=== PATIENT | male | born 1965 | race Caucasian/White ===

== ENCOUNTER 2020-03-10 11:21 | Outpatient (CLI) | payer OTHER, SELFPAY ==
--- NOTE | 2020-03-10 11:51 | XR_ITS ---
WS: [id number] LUMBAR SPINE: 3 VIEWS TECHNIQUE: AP, lateral and L5-S1 spot. HISTORY: NECK AND BACK PAIN COMPARISON: None available. Mild straightening of the normal lumbar lordosis. No fractures. Endplate osteophytes at all levels. Mild bilateral facet joint arthritis at L4-5 and L5-S1. SI joints are symmetric bilaterally. No soft tissue abnormalities. XR/XR lumbar spine 2-3V* [id number] IMPRESSION: Mild spondylosis. No fractures.
--- NOTE | 2020-03-10 11:51 | XR_ITS ---
WS: [id number] THORACIC SPINE TECHNIQUE: AP and lateral views are performed. HISTORY: NECK AND BACK PAIN COMPARISON: None available. Normal thoracic alignment. Endplate osteophytes at all levels. Mild narrowing of the disc spaces. No fractures. Pedicles are all identified. RIGHT lateral bridging osteophytes beginning at T7-T11. XR/XR thoracic spine 3V* [id number] IMPRESSION: Mild thoracic spondylosis.
--- NOTE | 2020-03-10 11:51 | XR_ITS ---
WS: [id number] CERVICAL SPINE 3 VIEWS HISTORY: NECK AND BACK PAIN COMPARISON: None available. Straightening of the normal cervical lordosis. C4 retrolisthesis by 2.2 mm. Moderate size osteophytes extend posteriorly toward the central cervical cord at the C3, C4, C5 and C6 levels. Moderate-sized anterior bridging osteophytes at C5 and C6. Lateral masses are aligned. The odontoid incompletely visualized. Soft tissues are normal. XR/XR cervical spine 3V* [id number] IMPRESSION: 1. C4 retrolisthesis by 2.2 mm. 2. Multilevel moderate spondylosis, most significant at C5-6 and C6-7.
== END 2020-03-10 11:22 | disposition home or self-care (01) ==
LOC: RADWPI 11:25
PROVIDERS: Family Provider Nurse Practitioner Family; PCP Nurse Practitioner Family; Visit Provider Nurse Practitioner Family
DX: M54.6 Pain in thoracic spine (principal); M54.2 Cervicalgia; M47.814 Spondylosis without myelopathy or radiculopathy, thoracic region; M47.816 Spondylosis without myelopathy or radiculopathy, lumbar region; M47.812 Spondylosis without myelopathy or radiculopathy, cervical region
CPT/HCPCS: 72040; 72072; 72100

== ENCOUNTER 2020-06-26 09:50 | Outpatient (CLI) | payer OTHER, SELFPAY ==
--- NOTE | 2020-06-26 09:57 | XR_ITS ---
WS: [id number] CERVICAL SPINE TECHNIQUE: 3 views of the cervical spine CLINICAL INFORMATION: CERVICALGIA, ARTHRODESIS STATUS COMPARISON: None. FINDINGS: Straightening of the normal cervical lordosis. Anterior cervical fusion with interbody fusion C3-C5. Disc space narrowing worse at C5-C6 and C6-C7. Anterior hypertrophic changes C5-C7. XR/XR cervical spine 3V* [id number] IMPRESSION: 1. Straightening of the normal cervical lordosis with satisfactory anterior ce rvical fusion C3-C5 interbody fusion grafts C3-4 and C4-5. 2. Disc space narrowing worse at C5-C6 and C6-C7.
== END 2020-06-26 09:51 | disposition home or self-care (01) ==
LOC: RADWPI 09:54
PROVIDERS: PCP Nurse Practitioner Family; Visit Provider Surgery
DX: M54.2 Cervicalgia (principal); Z98.1 Arthrodesis status
CPT/HCPCS: 72040

== ENCOUNTER 2020-11-03 09:53 | Outpatient (CLI) | payer OTHER, SELFPAY ==
--- NOTE | 2020-11-03 10:07 | XR_ITS ---
WS: [id number] CERVICAL SPINE 2 VIEWS HISTORY: ARTHRODESIS STATUS, CERVICALGIA COMPARISON: 06/26/2020 Straightening of the normal cervical lordosis. Anterior cervical fusion extends from C3 to C5. Interb kasia spacer at C3-4 and C4-5. Disc spaces maintained. No lucency around the hardware. Moderate disc sp caroline narrowing at C5-6 and C6-7 is similar to the prior study. Bilateral facet joint arthritis from C3 to C5. Soft tissues are normal. XR/XR cervical spine 3V* [id number] IMPRESSION: 1. Unchanged anterior cervical fusion with interbody spacers from C3 to C5. No complications. 2. Moderate degenerative disc space narrowing at C5-6 and C6-7 is unchanged.
== END 2020-11-03 09:54 | disposition home or self-care (01) ==
LOC: RADWPI 10:01
PROVIDERS: PCP Nurse Practitioner Family; Visit Provider Surgery
DX: M54.2 Cervicalgia (principal); Z98.1 Arthrodesis status
CPT/HCPCS: 72040

== ENCOUNTER 2025-05-05 21:26 | Emergency (ER) | payer OTHER, SELFPAY ==
--- OUTSIDE RECORDS SUMMARY | 2025-02-18 08:30 | XMS_ITS ---
Author Organization [facility] Address [address] [place] [address] Care Team Providers Care Director Of Market Research Name Role Phone Jasmin Murcia Primary Care Provider [phone] JASMIN MURCIA Unavailable Unavailable Paula Sarah Unavailable [phone] REASON FOR VISIT Screening Recall Medications Medication SIG (Take, Route, Frequency, Duration) Notes Start Date End Date Status oxyCODONE-Acetaminophe n 10-325 MG Tablet 1 tablet Orally every 6 hrs; Duration: 30 days As needed Do not exceed 4 per day Fill on 03-16-25 02/11/2025 04/15/2025 Active busPIRone HCl 10 MG Tablet TAKE 1/2 TO 1 (ONE-HALF TO ONE) TABLET BY MOUTH TWICE DAILY NEEDED FOR ANXIETY; Duration: 30 Active Famotidine 40 MG Tablet 1 tablet Orally Once a day; Duration: 30 days 01/15/2025 Active Metoprolol Succinate ER 50 MG Tablet Extended Release 24 Hour Take 1 tablet by mouth once daily; Duration: 30 Active Olmesartan Medoxomil 40 MG Tablet Take 1 tablet by mouth once daily; Duration: 30 Active traZODone HCl 100 MG Tablet 1 tab Orally Once a day at bedtime prn sleep; Duration: 30 days 12/24/2024 Active HYDROcodone-Acetaminop hen 7.5-325 MG Tablet 1 tablet as needed Orally every 6 hrs; Duration: 14 days 09/22/2020 Not-Taking Gabapentin 300 MG Capsule as directed Orally see instructions; Duration: 30 day(s) 300mg morning, 300mg mid afternoon, 600mg bedtime. Not-Taking Xanax 1 MG Tablet 1/2 to 1 tab Orally Twice a day prn anxiety; Duration: 30 days 07/25/2023 Not-Taking Tadalafil 20 MG Tablet TAKE 1 TABLET BY MOUTH ONCE DAILY NEEDED; Duration: 30 Not-Taking Ibuprofen *Pick strength-form from [facility] for [facility]* Active hydrOXYzine HCl 50 MG Tablet TAKE 1 TO 2 TABLETS BY MOUTH ONCE DAILY 30 MINUTES PRIOR TO BEDTIME NEEDED FOR SLEEP; Duration: 30 Active tiZANidine HCl 4 MG Tablet 1 tablet Orally twice a day prn muscle spasms; Duration: 30 days Fill 30 days from previous Rx 12/17/2024 04/23/2025 Active Gabapentin 600 MG Tablet TAKE 1 TABLET BY MOUTH FIVE TIMES DAILY DIRECTED Orally 5 times a day; Duration: 30 days Active Gabapentin *Pick strength-form from [facility]* Active Escitalopram Oxalate 20 MG Tablet 1 tablet Orally Once a day; Duration: 90 days Active oxyCODONE-Acetaminophe n 10-325 MG Tablet 1 tablet Orally every 6 hrs; Duration: 30 days As needed Do not exceed 4 per day Fill on 02-14-25 02/14/2025 03/16/2025 Active diphenhydrAMINE HCl 25 MG Capsule 1 capsule at bedtime as needed Orally Once a day Active amLODIPine Besylate 5 MG Tablet TAKE 1 TABLET BY MOUTH ONCE DAILY WITH SUPPER; Duration: 30 Active Encounters Encounter Location Date Provider Diagnosis [facility] [address] [place] [address] 02/18/2025 Paula Sarah Plan Of Treatment Next Appt Details Provider Name:Daisha young, 06/03/2025 10:20:00 AM, [address] [place], [address], Provider Name:Fredrick Junior , 06/10/2025 09:00:00 AM, [address] [place], [address], Progress Notes * Isrrael SCOTT WDOB:[birth year] (59 yo M)Acc No.[id number]:02/18/2025 Patient: Maricarmen darcyklarissaFabiánadam Perez Provider: Ingrid Sarah APRN :1965 A ge:59 Y S ex:Male Date:02/18/2025 Address:[address] [place], [place] [id number] Pcp:Jasmin Murcia Subjective: * Chief Complaints: * S creening Recall * Medications: T akingamLODIPine Besylate 5 MG Tablet TAKE 1 TABLET BY MOUTH ONCE DAILY WITH SUPPER busPIRone HCl 10 MG Tablet TAKE 1/2 TO 1 (ONE-HALF TO ONE) TABLET BY MOUTH TWICE DAILY NEEDED FOR ANXIETY diphenhydrAMINE HCl 25 MG Capsule 1 capsule at bedtime as needed Orally Once a day Escitalopram Oxalate 20 MG Tablet 1 tablet Orally Once a day Famotidine 40 MG Tablet 1 tablet Orally Once a day Gabapentin , Notes to Pharmacist: *Pick strength-form from [facility] for [facility]*Gabapentin 600 MG Tablet TAKE 1 TABLET BY MOUTH FIVE TIMES DAILY DIRECTED Orally 5 times a day hydrOXYzine HCl 50 MG Tablet TAKE 1 TO 2 TABLETS BY MOUTH ONCE DAILY 30 MINUTES PRIOR TO BEDTIME NEEDED FOR SLEEP Ibuprofen , Notes to Pharmacist: *Pick strength-form from [facility]*Metoprolol Succinate ER 50 MG Tablet Extended Release 24 Hour Take 1 tablet by mouth once daily Olmesartan Medoxomil 40 MG Tablet Take 1 tablet by mouth once daily oxyCODONE-Acetaminophen 10-325 MG Tablet 1 tablet Orally every 6 hrs As needed Do not exceed 4 per day, stop date 03/16/2025, Notes to Pharmacist: Fill on [id number]-Acetaminophen 10-325 MG Tablet 1 tablet Orally every 6 hrs As needed Do not exceed 4 per day, stop date 04/15/2025, Notes to Pharmacist: Fill on [id number] HCl 4 MG Tablet 1 tablet Orally twice a day prn muscle spasms , stop date 04/23/2025, Notes to Pharmacist: Fill 30 days from previous RxtraZODone HCl 100 MG Tablet 1 tab Orally Once a day at bedtime prn sleep Taking amLODIPine Besylate 5 MG Tablet TAKE 1 TABLET BY MOUTH ONCE DAILY WITH SUPPER Taking busPIRone HCl 10 MG Tablet TAKE 1/2 TO 1 (ONE-HALF TO ONE) TABLET BY MOUTH TWICE DAILY NEEDED FOR ANXIETY Taking diphenhydrAMINE HCl 25 MG Capsule 1 capsule at bedtime as needed Orally Once a day Taking Escitalopram Oxalate 20 MG Tablet 1 tablet Orally Once a day Taking Famotidine 40 MG Tablet 1 tablet Orally Once a day Taking Gabapentin , Notes to Pharmacist: *Pick strength-form from [facility] for [facility]*Taking Gabapentin 600 MG Tablet TAKE 1 TABLET BY MOUTH FIVE TIMES DAILY DIRECTED Orally 5 times a day Taking hydrOXYzine HCl 50 MG Tablet TAKE 1 TO 2 TABLETS BY MOUTH ONCE DAILY 30 MINUTES PRIOR TO BEDTIME NEEDED FOR SLEEP Taking Ibuprofen , Notes to Pharmacist: *Pick strength-form from [facility]*Taking Metoprolol Succinate ER 50 MG Tablet Extended Release 24 Hour Take 1 tablet by mouth once daily Taking Olmesartan Medoxomil 40 MG Tablet Take 1 tablet by mouth once daily Taking oxyCODONE-Acetaminophen 10-325 MG Tablet 1 tablet Orally every 6 hrs As needed Do not exceed 4 per day, stop date 03/16/2025, Notes to Pharmacist: Fill on [id number] oxyCODONE-Acetaminophen 10-325 MG Tablet 1 tablet Orally every 6 hrs As needed Do not exceed 4 per day, stop date 04/15/2025, Notes to Pharmacist: Fill on [id number] tiZANidine HCl 4 MG Tablet 1 tablet Orally twice a day prn muscle spasms , stop date 04/23/2025, Notes to Pharmacist: Fill 30 days from previous RxTaking traZODone HCl 100 MG Tablet 1 tab Orally Once a day at bedtime prn sleep Not-TakingGabapentin 300 MG Capsule as directed Orally see instructions , Notes to Pharmacist: 300mg morning, 300mg mid afternoon, 600mg bedtime.HYDROcodone-Acetaminophen 7.5-325 MG Tablet 1 tablet as needed Orally every 6 hrs Tadalafil 20 MG Tablet TAKE 1 TABLET BY MOUTH ONCE DAILY NEEDED Xanax 1 MG Tablet 1/2 to 1 tab Orally Twice a day prn anxiety Not-Taking Gabapentin 300 MG Capsule as directed Orally see instructions , Notes to Pharmacist: 300mg morning, 300mg mid afternoon, 600mg bedtime.Not-Taking HYDROcodone-Acetaminophen 7.5-325 MG Tablet 1 tablet as needed Orally every 6 hrs Not-Taking Tadalafil 20 MG Tablet TAKE 1 TABLET BY MOUTH ONCE DAILY NEEDED Not-Taking Xanax 1 MG Tablet 1/2 to 1 tab Orally Twice a day prn anxiety Billing Information: * Procedure Codes: * Electronic signature of Jerod Allison APRN on 05/05/2025 at 09:34 PM CDT Sign off status: Pending * Provider: Ingrid Sarah APRN Date: 0 02/18/2025 Generated for Maddi cotton/Jaya/Lela on: 1 09:34 PM CDT
--- OUTSIDE RECORDS SUMMARY | 2025-05-05 21:35 | XMS_ITS | Patient Health Record ---
Author Organization [facility] Address [address] [place] [address] Care Team Providers Care Shroudman Name Role Phone Gayle, Bushra Primary Care Provider GAYLEBUSHRA Unavailable Unavailable Fredrick Junior Unavailable [phone] Carmelo Judge Unavailable [phone] Migration, Provider Unavailable Unavailable Lisa Garduno Unavailable [phone] Gonzales Smith Unavailable [phone] Brandy Godinez Unavailable [phone] Daisha Padron Unavailable [phone] Paula Sarah Unavailable [phone] Allergies Allergen (clinical drug ingredient) Drug/Non Drug Allergy documented on EMR Reaction Allergy Type Onset Date Status No Known Drug Allergy Unknown Drug Allergy Active Results Component Value Reference Range Flag Notes Schedule Confirmation Reviewed date:08/14/2024 04:23:46 PM Interpretation: Performing Lab: Notes/Report: MRI Cervical Spine w/o Cont Cervical Spine AP/Lat 2-3 Vi [id number] (Not yet reviewed by provider) Interpretation: Performing Lab: Notes/Report: See Below For Report Cervical Spine AP/Lat 2-3 Views Read See Below For Report CBC w\ Auto Diff [id number] (Not yet reviewed by provider) Interpretation: Performing Lab: Notes/Report: WBC 7.8 4.5-11.0 X10'3 RBC 4.30 4.50-5.90 X10'6 LOW Hgb 12.8 13.5-17.5 G/DL LOW Hct 39.1 41.0-53.0 % LOW MCV 90.9 80.0-100.0 FL MCH 29.8 27.0-31.0 PG MCHC 32.7 31.0-37.0 G/DL Platelet 336 150-400 X10'3 RDW-SD 43.4 35.0-49.0 FL RDW-CV 13.1 12.2-15.6 % MPV 8.4 9.2-12.0 FL LOW Neutro Auto% 47.0 40.0-70.0 % Lymph Auto% 41.5 22.0-44.0 % Rock Auto% 7.9 3.0-7.0 % HI Eos Auto% 2.4 2.0-4.0 % Baso Auto% 0.9 0.0-1.0 % Imm Gran% .3 .0-.4 % Neutro Abs 3.69 .80-7.70 Absolute Neutrophil Count 3690 NA Lymph Abs 3.26 .10-4.10 Rock Abs .62 .20-1.00 Eos Abs .19 .00-.40 Baso Abs .07 .00-.20 Imm Gran Abs .02 .00-.10 NRBC# .00 .00-.20 NRBC% .00 .00-.20 /100 intact WBC's CBC w\ Auto Diff [id number] Reviewed date:03/26/2025 12:22:16 PM Interpretation:Abnormal Performing Lab: Notes/Report: Diagnosis Description: Essential (primary) hypertension WBC 7.8 4.5-11.0 X10'3 RBC 4.36 4.50-5.90 X10'6 LOW Hgb 14.4 13.5-17.5 G/DL Hct 40.7 41.0-53.0 % LOW MCV 93.3 80.0-100.0 FL MCH 33.0 27.0-31.0 PG HI MCHC 35.4 31.0-37.0 G/DL Platelet 325 150-400 X10'3 RDW-SD 42.3 35.0-49.0 FL RDW-CV 13.2 12.2-15.6 % MPV 9.1 9.2-12.0 FL LOW Neutro Auto% 53.5 40.0-70.0 % Lymph Auto% 32.6 22.0-44.0 % Rock Auto% 11.9 3.0-7.0 % HI Eos Auto% 1.0 2.0-4.0 % LOW Baso Auto% 0.6 0.0-1.0 % Imm Gran% .4 .0-.4 % Neutro Abs 4.15 .80-7.70 Absolute Neutrophil Count 4150 NA Lymph Abs 2.53 .10-4.10 Rock Abs .92 .20-1.00 Eos Abs .08 .00-.40 Baso Abs .05 .00-.20 Imm Gran Abs .03 .00-.10 NRBC# .00 .00-.20 NRBC% .00 .00-.20 /100 intact WBC's Comprehensive Metabolic Pane l (CMP) [id number] Reviewed date:03/26/2025 12:22:16 PM Interpretation:Abnormal Performing Lab: Notes/Report: Diagnosis Description: Essential (primary) hypertension Glucose Serum 98 71-110 MG/DL Testing p erformed at [facility], [address] [place] [address] [place] [address]. CLIA ID#: [id number] BUN 8 7-21 MG/DL Creat .78 .57-1.17 MG/DL X-bquqcm-m-benzoquino ne imine (NAPQI) is a metabolite of acetaminophen, NAPQI concentrations of apparoximately 10 mg/L correlation to toxic levels of acetaminophen demonstrates a greater than or equil to 10% change in results. NAPQI concentrations greater than this may lead to falsely depressed results for patient samples. Use of this assay is not recommended for patients undergoing treatment with phenindione, due to the potential for falsely depressed results. GFR 103.3 NA Calculation pe rformed from GFR calculator provided by the [employer]. Glomerular Filtration rate(GRF) is the best overall index of kidney function. Normal GFR varies according to age,sex, body size, and declines with age. The [employer] recommends using the CKD-EPI Creatinine Equation(2020) to estimate GFR. BUN/Creat Ratio 10.3 12.0-20.0 % LOW Total Protein 7.0 5.8-8.0 G/DL Albumin 4.8 3.2-4.8 G/DL Globulin 2.2 2.3-3.5 G/DL LOW Alb/Glob 2.2 0.8-2.2 Calcium 9.5 8.7-10.4 MG/DL Sodium 134 136-145 MMOL/L LOW Potassium 4.5 3.5-5.1 MMOL/L Chloride 96 98-107 MMOL/L LOW CO2 24.0 20.0-31.0 MMOL/L Anion Gap 18 5-15 HI Alk Phos 80 46-116 Bili Total .4 .3-1.2 MG/DL Use of this assay is not recommended for patients undergoing treatment with eltrombopag due to the potential for falsely elevated results. AST/SGOT 38 15-37 UNIT/L HI ALT/SGPT 56 12-78 UNIT/L Osmo Serum,Calculated 276 280-300 MOSM/KG LOW PSA Medicare Screening--G010 3 Reviewed date:03/26/2025 12:22:16 PM Interpretation:Normal Performing Lab: Notes/Report: Diagnosis Description: Encounter for screening for malignant neoplasm of prostate PSA 1.84 .00-4.00 NG/ML PSA concen trations, regardless of the value, should not be interpreted as definitive evidence for the presence or absence of prostate cancer. 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 >7.0 % diabetics. EAG 117 NA Estimated Aver age Glucose(EAG). Lipid Panel Reflex [facility] 8008 1, 54090 Reviewed date:03/26/2025 12:22:16 PM Interpretation:Normal Performing Lab: Notes/Report: Diagnosis Description: Essential (primary) hypertension Trig 110 NA 0-4 yr 22-99 15-19 yr 39-132 5-9 yr 30-101 10-14 yr 37-131 Children: Female Classification Guidelines:Triglycerid es 5-9 yr 32-105 0-4 yr 34-112 10-14 yr 32-125 Borderline High 150-199 Children: Male Very high >=500 High 200-499 Adults: >20yrs Desirable <150 15-19 yr 37-148 Chol 210 <=200 MG/DL HI HDL 74 30-72 MG/DL HI 15-19y 35-74 >=20y 40-59 Female: 10-14y 37-74 10-14y 37-70 5-9y 38-75 Male: 15-19y 30-63 5-9y 36-73 Reference Ranges:HDL >=20y 40-59 CH/HDL 2.8 0.0-4.9 RATIO LDL 114 0-130 MG/DL LDL result is inaccurate , if Trig is >400 mg/dl. See DLDL result. Thyroid Stimulating Hormone (TSH) 96649 Reviewed date:03/26/2025 12:22:16 PM Interpretation:Normal Performing Lab: Notes/Report: Diagnosis Description: Encounter for screening for other suspected endocrine disorder TSH 2.096 .358-3.740 MlU/ML Urine Drug Screen (cup read) - [id number] Reviewed date:11/05/2024 02:50:07 PM Interpretation: Performing Lab: Notes/Report: OXY + Tox Results Reviewed date:02/14/2025 04:38:26 PM Interpretation: Performing Lab: Notes/Report: zzzFluoro >1h4 (Not yet revi ewed by provider) Interpretation: Performing Lab: Notes/Report: Fluoroscopy only. No dictation for this exam and accession number. FINAL REPORT Read Fluoroscopy only. No dictation for this exam and accession number. Cervical Spine AP/Lat 2-3 Vi [id number] (Not yet reviewed by provider) Interpretation: Performing Lab: Notes/Report: [id number]&org=iSite Urine Confirmation Panel (in strument) - [id number] Reviewed date:02/14/2025 04:22:37 PM Interpretation: Performing Lab: Notes/Report: 6-Acetylmorphine 0 <6 ng/mL N This collin t was developed and its performance characteristics determined by [facility]. It has not been cleared or approved by the U.S. Food and Drug Administration. 7-Aminoclonazepam 0 <60 ng/mL N This te st was developed and its performance characteristics determined by [facility]. It has not been cleared or approved by the U.S. Food and Drug Administration. Alprazolam 0 <60 ng/mL N This test was developed and its performance characteristics determined by [facility]. It has not been cleared or approved by the U.S. Food and Drug Administration. Amphetamine 0 <75 ng/mL N This test was developed and its performance characteristics determined by [facility]. It has not been cleared or approved by the U.S. Food and Drug Administration. aOH-Alprazolam 0 <60 ng/mL N This test was developed and its performance characteristics determined by [facility]. It has not been cleared or approved by the U.S. Food and Drug Administration. Buprenorphine 0.0 <7.5 ng/mL N This test w as developed and its performance characteristics determined by [facility]. It has not been cleared or approved by the U.S. Food and Drug Administration. Norbuprenorphine 0.0 <37.5 ng/mL N This te st was developed and its performance characteristics determined by [facility]. It has not been cleared or approved by the U.S. Food and Drug Administration. Carisoprodol 0 <75 ng/mL N This test wa s developed and its performance characteristics determined by [facility]. It has not been cleared or approved by the U.S. Food and Drug Administration. Codeine 0 <75 ng/mL N This test was developed and its performance characteristics determined by [facility]. It has not been cleared or approved by the U.S. Food and Drug Administration. EDDP 0 <75 ng/mL N This test was developed and its performance characteristics determined by [facility]. It has not been cleared or approved by the U.S. Food and Drug Administration. Fentanyl 0 <6 ng/mL N This test was developed and its performance characteristics determined by [facility]. It has not been cleared or approved by the U.S. Food and Drug Administration. Hydrocodone 2 <75 ng/mL N This test was developed and its performance characteristics determined by [facility]. It has not been cleared or approved by the U.S. Food and Drug Administration. Hydromorphone 0 <75 ng/mL N This test w as developed and its performance characteristics determined by [facility]. It has not been cleared or approved by the U.S. Food and Drug Administration. Lorazepam 0 <60 ng/mL N This test was developed and its performance characteristics determined by [facility]. It has not been cleared or approved by the U.S. Food and Drug Administration. MDMA 0 <75 ng/mL N This test was developed and its performance characteristics determined by [facility]. It has not been cleared or approved by the U.S. Food and Drug Administration. Meperidine 0.0 <37.5 ng/mL N This test was developed and its performance characteristics determined by [facility]. It has not been cleared or approved by the U.S. Food and Drug Administration. Meprobamate 0 <75 ng/mL N This test was developed and its performance characteristics determined by [facility]. It has not been cleared or approved by the U.S. Food and Drug Administration. Methamphetamine 28 <75 ng/mL N This test was developed and its performance characteristics determined by [facility]. It has not been cleared or approved by the U.S. Food and Drug Administration. Methadone 0 <75 ng/mL N This test was developed and its performance characteristics determined by [facility]. It has not been cleared or approved by the U.S. Food and Drug Administration. Morphine 0 <75 ng/mL N This test was developed and its performance characteristics determined by [facility]. It has not been cleared or approved by the U.S. Food and Drug Administration. Nordiazepam 0 <60 ng/mL N This test was developed and its performance characteristics determined by [facility]. It has not been cleared or approved by the U.S. Food and Drug Administration. Norfentanyl 0 <6 ng/mL N This test was developed and its performance characteristics determined by [facility]. It has not been cleared or approved by the U.S. Food and Drug Administration. Normeperidine 0.0 <37.5 ng/mL N This test was developed and its performance characteristics determined by [facility]. It has not been cleared or approved by the U.S. Food and Drug Administration. O-desmethyltramadol 0 <75 ng/mL N This test was developed and its performance characteristics determined by [facility]. It has not been cleared or approved by the U.S. Food and Drug Administration. Oxazepam 0 <60 ng/mL N This test was developed and its performance characteristics determined by [facility]. It has not been cleared or approved by the U.S. Food and Drug Administration. Oxycodone 1714.9 <37.5 ng/mL H This test was developed and its performance characteristics determined by [facility]. It has not been cleared or approved by the U.S. Food and Drug Administration. Oxymorphone 875 <75 ng/mL H This test was developed and its performance characteristics determined by [facility]. It has not been cleared or approved by the U.S. Food and Drug Administration. Phencyclidine 0.0 <7.5 ng/mL N This test w as developed and its performance characteristics determined by [facility]. It has not been cleared or approved by the U.S. Food and Drug Administration. Tapentadol 8.4 <37.5 ng/mL N This test was developed and its performance characteristics determined by [facility]. It has not been cleared or approved by the U.S. Food and Drug Administration. Temazepam 0 <60 ng/mL N This test was developed and its performance characteristics determined by [facility]. It has not been cleared or approved by the U.S. Food and Drug Administration. Tramadol 0 <75 ng/mL N This test was developed and its performance characteristics determined by [facility]. It has not been cleared or approved by the U.S. Food and Drug Administration. Norhydrocodone 0 <75 ng/mL N This test was developed and its performance characteristics determined by [facility]. It has not been cleared or approved by the U.S. Food and Drug Administration. Noroxycodone 2485 <38 ng/mL H This test wa s developed and its performance characteristics determined by [facility]. It has not been cleared or approved by the U.S. Food and Drug Administration. Pregabalin 0 <225 ng/mL N This test was developed and its performance characteristics determined by [facility]. It has not been cleared or approved by the U.S. Food and Drug Administration. Gabapentin >04363 <225 ng/mL > This test was developed and its performance characteristics determined by [facility]. It has not been cleared or approved by the U.S. Food and Drug Administration. Benzoylecgonine 0.0 <37.5 ng/mL N This collin t was developed and its performance characteristics determined by [facility]. It has not been cleared or approved by the U.S. Food and Drug Administration. 4-Hydroxy Xylazine 0 <25 ng/mL N This t est was developed and its performance characteristics determined by [facility]. It has not been cleared or approved by the U.S. Food and Drug Administration. Urine Drug Screen (cup read) - [id number] Reviewed date:02/11/2025 03:04:15 PM Interpretation: Performing Lab: Notes/Report: OXY + Chest PA/Lat-57206 (Not yet reviewed by provider) Interpretation: Performing Lab: Notes/Report: pls=[id number]&org=iSite Basic Metabolic Panel (BMP) 06485 (Not yet reviewed by provider) Interpretation: Performing Lab: Notes/Report: Sodium 138 136-145 MMOL/L Potassium 4.4 3.5-5.1 MMOL/L Chloride 104 98-107 MMOL/L CO2 25.2 20.0-31.0 MMOL/L Glucose Serum 92 71-110 MG/DL Testing p erformed at [facility], [address] [place] [address] [place] [address]. CLIA ID#: [id number] BUN 11 7-21 MG/DL Creat .71 .57-1.17 MG/DL I-lnsnkf-g-benzoquino ne imine (NAPQI) is a metabolite of acetaminophen, NAPQI concentrations of apparoximately 10 mg/L correlation to toxic levels of acetaminophen demonstrates a greater than or equil to 10% change in results. NAPQI concentrations greater than this may lead to falsely depressed results for patient samples. Use of this assay is not recommended for patients undergoing treatment with phenindione, due to the potential for falsely depressed results. GFR 106.4 NA Calculation pe rformed from GFR calculator provided by the [employer]. Glomerular Filtration rate(GRF) is the best overall index of kidney function. Normal GFR varies according to age,sex, body size, and declines with age. The [employer] recommends using the CKD-EPI Creatinine Equation(2020) to estimate GFR. Anion Gap 13 5-15 BUN/Creat Ratio 15.5 12.0-20.0 % Calcium 9.4 8.7-10.4 MG/DL Osmo Serum,Calculated 285 280-300 MOSM/KG Sedimentation Rate 50080 (No t yet reviewed by provider) Interpretation: Performing Lab: Notes/Report: Sed Rate 4 0-20 MM/HR CRP [id number] (Not yet reviewed by provider) Interpretation: Performing Lab: Notes/Report: CRP <.50 .40-1.00 MG/DL Chest PA/Lat-08312 (Not yet reviewed by provider) Interpretation: Performing Lab: Notes/Report: See Below For Report Chest PA/Lat Read See Below For Report Urine Confirmation Panel (in strument) - [id number] Reviewed date:11/07/2024 03:00:00 PM Interpretation: Performing Lab: Notes/Report: 6-Acetylmorphine 0 <6 ng/mL N This collin t was developed and its performance characteristics determined by [facility]. It has not been cleared or approved by the U.S. Food and Drug Administration. 7-Aminoclonazepam 0 <60 ng/mL N This te st was developed and its performance characteristics determined by [facility]. It has not been cleared or approved by the U.S. Food and Drug Administration. Alprazolam 0 <60 ng/mL N This test was developed and its performance characteristics determined by [facility]. It has not been cleared or approved by the U.S. Food and Drug Administration. Amphetamine 0 <75 ng/mL N This test was developed and its performance characteristics determined by [facility]. It has not been cleared or approved by the U.S. Food and Drug Administration. aOH-Alprazolam 0 <60 ng/mL N This test was developed and its performance characteristics determined by [facility]. It has not been cleared or approved by the U.S. Food and Drug Administration. Buprenorphine 0.0 <7.5 ng/mL N This test w as developed and its performance characteristics determined by [facility]. It has not been cleared or approved by the U.S. Food and Drug Administration. Norbuprenorphine 0.0 <37.5 ng/mL N This te st was developed and its performance characteristics determined by [facility]. It has not been cleared or approved by the U.S. Food and Drug Administration. Carisoprodol 0 <75 ng/mL N This test wa s developed and its performance characteristics determined by [facility]. It has not been cleared or approved by the U.S. Food and Drug Administration. Codeine 0 <75 ng/mL N This test was developed and its performance characteristics determined by [facility]. It has not been cleared or approved by the U.S. Food and Drug Administration. EDDP 0 <75 ng/mL N This test was developed and its performance characteristics determined by [facility]. It has not been cleared or approved by the U.S. Food and Drug Administration. Fentanyl 0 <6 ng/mL N This test was developed and its performance characteristics determined by [facility]. It has not been cleared or approved by the U.S. Food and Drug Administration. Hydrocodone 0 <75 ng/mL N This test was developed and its performance characteristics determined by [facility]. It has not been cleared or approved by the U.S. Food and Drug Administration. Hydromorphone 0 <75 ng/mL N This test w as developed and its performance characteristics determined by [facility]. It has not been cleared or approved by the U.S. Food and Drug Administration. Lorazepam 0 <60 ng/mL N This test was developed and its performance characteristics determined by [facility]. It has not been cleared or approved by the U.S. Food and Drug Administration. MDMA 0 <75 ng/mL N This test was developed and its performance characteristics determined by [facility]. It has not been cleared or approved by the U.S. Food and Drug Administration. Meperidine 0.0 <37.5 ng/mL N This test was developed and its performance characteristics determined by [facility]. It has not been cleared or approved by the U.S. Food and Drug Administration. Meprobamate 0 <75 ng/mL N This test was developed and its performance characteristics determined by [facility]. It has not been cleared or approved by the U.S. Food and Drug Administration. Methamphetamine 0 <75 ng/mL N This test was developed and its performance characteristics determined by [facility]. It has not been cleared or approved by the U.S. Food and Drug Administration. Methadone 0 <75 ng/mL N This test was developed and its performance characteristics determined by [facility]. It has not been cleared or approved by the U.S. Food and Drug Administration. Morphine 0 <75 ng/mL N This test was developed and its performance characteristics determined by [facility]. It has not been cleared or approved by the U.S. Food and Drug Administration. Nordiazepam 0 <60 ng/mL N This test was developed and its performance characteristics determined by [facility]. It has not been cleared or approved by the U.S. Food and Drug Administration. Norfentanyl 0 <6 ng/mL N This test was developed and its performance characteristics determined by [facility]. It has not been cleared or approved by the U.S. Food and Drug Administration. Normeperidine 0.0 <37.5 ng/mL N This test was developed and its performance characteristics determined by [facility]. It has not been cleared or approved by the U.S. Food and Drug Administration. O-desmethyltramadol 0 <75 ng/mL N This test was developed and its performance characteristics determined by [facility]. It has not been cleared or approved by the U.S. Food and Drug Administration. Oxazepam 0 <60 ng/mL N This test was developed and its performance characteristics determined by [facility]. It has not been cleared or approved by the U.S. Food and Drug Administration. Oxycodone >2500.0 <37.5 ng/mL > This test was developed and its performance characteristics determined by [facility]. It has not been cleared or approved by the U.S. Food and Drug Administration. Oxymorphone 0 <75 ng/mL N This test was developed and its performance characteristics determined by [facility]. It has not been cleared or approved by the U.S. Food and Drug Administration. Phencyclidine 0.0 <7.5 ng/mL N This test w as developed and its performance characteristics determined by [facility]. It has not been cleared or approved by the U.S. Food and Drug Administration. Tapentadol 0.0 <37.5 ng/mL N This test was developed and its performance characteristics determined by [facility]. It has not been cleared or approved by the U.S. Food and Drug Administration. Temazepam 0 <60 ng/mL N This test was developed and its performance characteristics determined by [facility]. It has not been cleared or approved by the U.S. Food and Drug Administration. Tramadol 0 <75 ng/mL N This test was developed and its performance characteristics determined by [facility]. It has not been cleared or approved by the U.S. Food and Drug Administration. Norhydrocodone 0 <75 ng/mL N This test was developed and its performance characteristics determined by [facility]. It has not been cleared or approved by the U.S. Food and Drug Administration. Noroxycodone 233 <38 ng/mL H This test wa s developed and its performance characteristics determined by [facility]. It has not been cleared or approved by the U.S. Food and Drug Administration. Pregabalin 0 <225 ng/mL N This test was developed and its performance characteristics determined by [facility]. It has not been cleared or approved by the U.S. Food and Drug Administration. Gabapentin >20623 <225 ng/mL > This test was developed and its performance characteristics determined by [facility]. It has not been cleared or approved by the U.S. Food and Drug Administration. Benzoylecgonine 0.0 <37.5 ng/mL N This collin t was developed and its performance characteristics determined by [facility]. It has not been cleared or approved by the U.S. Food and Drug Administration. 4-Hydroxy Xylazine 0 <25 ng/mL N This t est was developed and its performance characteristics determined by [facility]. It has not been cleared or approved by the U.S. Food and Drug Administration. Urine Drug Screen (cup read) - 40911 Reviewed date:12/17/2024 08:37:05 AM Interpretation: Performing Lab: Notes/Report: OXY + Urine Drug Screen (cup read) - 03980 Reviewed date:01/10/2025 09:32:51 AM Interpretation: Performing Lab: Notes/Report: OXY + Urine Drug Screen (cup read) - 11153 Reviewed date:06/21/2024 10:18:25 AM Interpretation: Performing Lab: Notes/Report: OXY POS zzzUrine Drug Screen (confir mation by instrument) - 25667 Reviewed date:06/26/2024 12:13:42 PM Interpretation: Performing Lab: Notes/Report: MRI Cervical Spine w/o Cont- [id number] Reviewed date:08/14/2024 04:23:46 PM Interpretation: Performing Lab: Notes/Report: [email or web address] MRI Cervical Spine w/o Cont- [id number] Reviewed date:08/14/2024 04:23:46 PM Interpretation: Performing Lab: Notes/Report: See Below For Report MRI Cervical Spine w/o Cont Diagnosis Description: Other spondylosis with radiculopathy, cervical region Read See Below For Report Schedule Confirmation Reviewed date:08/02/2024 05:29:19 PM Interpretation: Performing Lab: Notes/Report: MRI Cervical Spine w/o Cont Tox Results Reviewed date:11/07/2024 04:03:58 PM Interpretation: Performing Lab: Notes/Report: Prothrombin Time 94131 (Not yet reviewed by provider) Interpretation: Performing Lab: Notes/Report: ProTime 10.2 9.1-11.9 SEC Normal Range : 9.1-11.9 INR .95 .90-1.20 Therapaeutic Range for heart valve replacement: 2.5-3.50 Therapeutic Range: 2.0-3.0 Partial Thromboplastin Time 97020 (Not yet reviewed by provider) Interpretation: Performing Lab: Notes/Report: PTT 25.6 22.6-31.8 SEC Therapeutic Range: 60-100. Critical Value Starting at > 100. Fluoro Needle For Placement - Spine 36715 Reviewed date:09/11/2024 11:19:09 AM Interpretation: Performing Lab: Notes/Report: Reason For Referral Reason Evaluation for a cer vical spinal cord stimulator Diagnosis 1 Cervical radiculopat hy (M54.12) Diagnosis 2 Cervical cord myelom alacia (G95.89) Diagnosis 3 Chronic pain syndrom e (G89.4) Referring Provider First Name Carmelo Referring Provider Last Name Alfie Referring Provider Speciality Neurosurge ry Referred Organization [facility] Referred Provider Gonzales Smith Referred Address [address] [facility],[place],[address], Referral Priority Routine Reason Evaluation for a cer vical spinal cord stimulator Diagnosis 1 Chronic pain syndrom e (G89.4) Diagnosis 2 Cervical cord myelom alacia (G95.89) Diagnosis 3 Cervical radiculopat hy (M54.12) Referral Organization [facility] [place] Referring Provider First Name Carmelo Referring Provider Last Name Alfie Referring Provider Speciality Neurosurge shane Referred Provider Gonzales Smith Referred Provider Specialty [facility] General Notes Randi Bradley 08/18 04:07:12 PM >See referral notes. Referral Priority Routine Reason colon cancer screen Diagnosis 1 Colon cancer screeni ng (Z12.11) Referral Organization [facility] Referring Provider First Name Bushra Referring Provider Last Name Gayle Referring Provider Speciality Nurse Catrachito hendrixioner Referred Organization [facility] Referred Provider [facility] Ref[facility] Address [address] [facility] [place], Referred Provider Specialty Gastroentero logy General Notes Randi Bradley RN 04/11/2025 12:01:48 PM CDT > Patient has apt on 04/15/2025 Referral Priority Routine Referral Appointment Date 04/15/2025 Reason colon cancer screen Appt 02/18 Diagnosis 1 Colon cancer screeni lula (Z12.11) Referring Provider First Name Bushra Referring Provider Last Name Gayle Referring Provider Speciality Nurse Catrachito gonzalez Referred Organization [facility] Referred Provider Axel Pascal [facility] Referred Address [address] [place],[address], Referral Priority Routine Medications Medication SIG (Take, Route, Frequency, Duration) Notes Start Date End Date Status Escitalopram Oxalate 20 MG Tablet 1 tablet Orally Once a day; Duration: 90 days Active diphenhydrAMINE HCl 25 MG Capsule 1 capsule at bedtime as needed Orally Once a day Active amLODIPine Besylate 5 MG Tablet TAKE 1 TABLET BY MOUTH ONCE DAILY WITH SUPPER; Duration: 30 Active HYDROcodone-Acetaminop hen 7.5-325 MG Tablet 1 tablet as needed Orally every 6 hrs; Duration: 14 days 09/22/2020 Not-Taking busPIRone HCl 10 MG Tablet 1 tablet 3 times a day for anxiety; Duration: 30 days Active Gabapentin 300 MG Capsule as directed Orally see instructions; Duration: 30 day(s) 300mg morning, 300mg mid afternoon, 600mg bedtime. Not-Taking Xanax 1 MG Tablet 1/2 to 1 tab Orally Twice a day prn anxiety; Duration: 30 days 07/25/2023 Not-Taking Gabapentin 600 MG Tablet TAKE 1 TABLET BY MOUTH FIVE TIMES DAILY DIRECTED Orally 5 times a day; Duration: 90 days Active Tadalafil 20 MG Tablet TAKE 1 TABLET BY MOUTH ONCE DAILY NEEDED; Duration: 30 Not-Taking Reglan 10 MG Tablet 1 tablet Orally 30 minutes prior to starting colon prep; Duration: 1 days 04/15/2025 Active Olmesartan Medoxomil 40 MG Tablet Take 1 tablet by mouth once daily; Duration: 30 Active oxyCODONE-Acetaminophe n 10-325 MG Tablet 1 tablet Orally every 6 hrs; Duration: 30 days As needed Do not exceed 4 per day Fill on 05/15/2025 04/15/2025 06/14/2025 Active Metoprolol Succinate ER 50 MG Tablet Extended Release 24 Hour Take 1 tablet by mouth once daily; Duration: 30 Active traZODone HCl 300 MG Tablet 1 tab Orally Once a day at bedtime prn sleep; Duration: 30 days 12/24/2024 Active Golytely 236 GM Solution Reconstituted 240ml Orally [id number]; Duration: 1 days 04/15/2025 Active Famotidine 40 MG Tablet 1 tablet Orally Once a day; Duration: 30 days 01/15/2025 Active Ibuprofen 800 MG Tablet 1 tablet with food or milk as needed Orally daily *Pick strength-form from [employer] for eRX* Active hydrOXYzine HCl 50 MG Tablet TAKE 1 TO 2 TABLETS BY MOUTH ONCE DAILY 30 MINUTES PRIOR TO BEDTIME NEEDED FOR SLEEP; Duration: 30 days Active Immunizations Vaccine Route Administration Date Status Comme nts Flucelvax Quadrivalent Pres Free Unknown 05/15/2020 Administered Flucelvax Trivalent, Syringe 0.5 mL, PF IM Intramuscular 05/07/2024 Administered supplied by [employer]/pt tolerated well/instructed to wait 20 min Flucelvax Trivalent, Syringe 0.5 mL, PF IM Intramuscular 04/22/2025 Administered supplied by [employer]/pt tolerated well/instructed to wait 20 min Influenza, seasonal, injectable, preservative free, 3 yrs and above Unknown 04/09/2019 Administered Pneumovax 23 Unknown 04/09/2019 Administered Social History Tobacco Use: Social History Observation Description Date Details (start date - stop date) Current Smoker NA - NA Social History Depression Screening Social Info Question Answer Notes depression screening findings Findings Negative (0 -4) PHQ-9 Little interest or p ian in doing things Not at all Feeling down, depressed, or hopeless Not at all Trouble falling or staying asleep, or sleeping t oo much Not at all Feeling tired or having little energy Not at all Poor appetite or overeating Not at all Feeling bad about yourself, or that you are a failure, or have let yourself or your family down Not at all Trouble concentrating on thi ngs, such as reading the newspaper or watching television Not at all Moving or speaking so slowly that other people could have noticed. Or the opposite ? being so fidgety or restless that you have been moving around a lot more than usual Not at all Thoughts that you would be b mai off , or of hurting yourself in some way Not at all Total Score 0 Drugs/Alcohol: Social Info Question Answer Notes Alcohol Screen (Audit-C) Did you have a drink containing alcohol in the past year? Yes How often did you have a drink containing alcohol in the past year? 4 or more times a week (4 points) Points 4 Interpretation Positive Drugs Have you used drugs other than those for medical reasons in the past 12 months? No Caffeine Intake: more than 4 cups per day Tobacco Use: Social Info Question Answer Notes Tobacco Control (Standard) Tobacco use: Current smoker How often do you smoke cigarettes? Every day How many cigarettes a day do you smoke? 11-20 Additional Details Category Social Info Options Details Miscellaneous: Marital status: Occupation: Works full-time Drugs/Alcohol: Do you smoke marijuana? De nies Do you drink alcohol? Yes Migrated Social History Migrated Social History Alcoholic beverages? - Yes, Applying for disability? - No, Currently on disability? - No, Drug or substance abuse? - No, exposure to toxins/poisonous substances at work - No, Involved in any legal proceedings or lawsuits? - No, Marital Status - , Nonprescription drug use? - No, Participation in detoxification or rehabilitation - No, Smoking - 1 PPD, Smoking status (MU) - Current every day smoker, Working currently? - Yes Section Notes: 10/04/2022 PHQ-9 10/04/2022 PHQ-9 Depression screen 05/07/2024 score 0 Depression screen 05/07/2024 score 0 Depression screen 05/07/2024 score 0 Depression screen 05/07/2024 score 0 PHQ9 12/24/2024 Depression screen 05/07/2024 score 0 PHQ9 12/24/2024 Depression screen 05/07/2024 score 0 PHQ9 12/24/2024 10/04/2022 PHQ-9 14 Depression screen 05/07/2024 score 0 PHQ9 12/24/2024 14 14 14 14 Depression screening 5 Compl eted on 10/04/2022 PHQ-9 10/04/2022 PHQ-9 10/04/2022 PHQ-9 10/04/2022 PHQ-9 Depression screen 05/07/2024 score 0 Depression screen 05/07/2024 score 0 Depression screen 05/07/2024 score 0 PHQ9 12/24/2024 Depression screen 05/07/2024 score 0 PHQ9 12/24/2024 Depression screen 05/07/2024 score 0 PHQ9 12/24/2024 Depression screen 05/07/2024 score 0 PHQ9 12/24/2024 Depression screen 05/07/2024 score 0 10/04/2022 PHQ-9 10/04/2022 PHQ-9 10/04/2022 PHQ-9 10/04/2022 PHQ-9 14 14 14 14 Problems Problem Type SNOMED Code ICD Code Onset Dates Problem Status W/U Status Risk Notes Problem Tobacco user (257058087) Nicotine dependence, cigarettes, uncomplicated (F17.210) Active confirmed Problem Chronic pain (74076043) Other chronic pain (G89.29) Active confirmed Problem Chronic pain syndrome (664121832) Chronic pain syndrome (G89.4) 12/19/19 Active confirmed Problem Spinal cord disorder (02532300) Disease of spinal cord, unspecified (G95.9) 12/19/19 Active confirmed Problem Myelopathy due to cervical spondylosis (disorder) (3165652362) Other spondylosis with myelopathy, cervical region (M47.12) 12/19/19 Active confirmed Problem Cervical spondylosis without myelopathy (703441258) Other spondylosis with radiculopathy, cervical region (M47.22) 12/19/19 24 Active confirmed Problem Lumbosacral spondylosis without myelopathy (17166311) Other spondylosis with radiculopathy, lumbosacral region (M47.27) 12/19/19 24 Active confirmed Problem Degeneration of cervical intervertebral disc (88531140) Other cervical disc degeneration, unspecified cervical region (M50.30) 12/19/19 Active confirmed Problem Degeneration of lumbar intervertebral disc (70692182) Other intervertebral disc degeneration, lumbar region (M51.36) 12/19/19 Active confirmed Problem Post-laminectomy syndrome (01198684) Postlaminectomy syndrome, not elsewhere classified (M96.1) 12/19/19 Active confirmed Problem Erectile dysfunction (disorder) (118641823) Other male erectile dysfunction (N52.8) Active confirmed Problem Abnormal gait (60338673) Unspecified abnormalities of gait and mobility (R26.9) 12/19/19 Active confirmed Problem High risk drug monitoring status (789550379) USP (current) use of opiate analgesic (Z79.891) 06/03/20 24 Active confirmed Problem Cervical radiculopathy (97677741) Cervical radiculopathy (M54.12) Active confirmed Problem Anxiety (00512503) Anxiety (F41.9) Active confirmed Problem Lumbar radiculopathy (506972188) Lumbar radiculopathy (M54.16) Active confirmed Problem Cervical myelopathy (184856095) Cervical myelopathy (G95.9) Active confirmed Problem Insomnia (958488838) Insomnia (G47.00) Active confirmed Problem Lumbar spinal stenosis (78371794) Lumbar foraminal stenosis (M48.061) Active confirmed Problem Anemia (518521189) Anemia (D64.9) Active confirmed Problem Bilateral carpal tunnel syndrome (0212575355684588 1) Bilateral carpal tunnel syndrome (G56.03) Active confirmed Problem Neuropathic pain (820294454) Neuropathic pain (M79.2) Active confirmed Problem Carpal tunnel syndrome of left wrist (389592936221581) Carpal tunnel syndrome of left wrist (G56.02) Active confirmed Problem Cervical spondylosis (300892054) Cervical spondylosis (M47.812) Active confirmed Problem Degeneration of lumbosacral intervertebral disc (56516536) Disc degeneration, lumbosacral (M51.37) Active confirmed Problem Neck pain (37607392) Cervical spine pain (M54.2) Active confirmed Problem Pain in limb (06332670) Pain of left thumb (M79.645) Active confirmed Problem Cervical spinal stenosis (32535714) Cervical spinal stenosis (M48.02) Active confirmed Problem Hyperlipidemia (95964130) Hyperlipidemia (E78.5) Active confirmed Problem Spondylosis (7627275) Spondylosis (M47.9) Active confirmed Problem Lesion of ulnar nerve (968971178) Cubital tunnel syndrome on left (G56.22) Active confirmed Problem Lesion of ulnar nerve (593927661) Ulnar neuropathy of both upper extremities (G56.23) Active confirmed Problem Skin sensation disturbance (17995114) Arm paresthesia, left (R20.2) Active confirmed Problem Skin sensation disturbance (68372203) Arm paresthesia, right (R20.2) Active confirmed Problem Uncomplicated moderate persistent asthma (931449634) Moderate persistent asthmatic bronchitis without complication (J45.40) Active confirmed Problem Localized, primary osteoarthritis of the wrist (346027519) 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 (M19.032) Active confirmed Problem Myelomalacia (disorder) (76349846) Cervical cord myelomalacia (G95.89) Active confirmed Problem Primary hypertension (70638609) Primary hypertension (I10) Active confirmed Problem Lesion of ulnar nerve (055674783) Ulnar neuritis, right (G56.21) Active confirmed Problem Lesion of ulnar nerve (413179531) Ulnar neuritis, left (G56.22) Active confirmed Vital Signs Heart Rate 96 /min 04/22/2025 Temperature 97.2 degrees Fahrenheit 04/22/2025 Respiratory Rate 18 /min 04/22/2025 Oximetry 96 % 04/22/2025 Blood pressure diastolic 80 mm Hg 04/22/2025 Height-cm 167.64 cm 04/22/2025 Weight-kg 88 kg 04/22/2025 Height 66 in 04/22/2025 Blood pressure systolic 130 mm Hg 04/22/2025 Weight 194 lbs 04/22/2025 BMI 31.31 kg/m2 04/22/2025 Procedures Procedure Date Ordered Date Performed Result Body Sit e Epidural, Lumbar/Sacral (Cau antonette), w/ imaging guidance - 84606 09/11/2024 09/11/2024 N/A Implant Spinal Cord Stimulat or Trial - 99489 11/01/2024 11/01/2024 N/A Encounters Encounter Location Date Provider Diagnosis [facility] Office [address] [address] 05/07/2024 [facility] Primary hypertension I10 ; Neuropathic pain M79.2 ; Back pain with radiculopathy M54.10 ; Depression screen Z13.31 ; Encounter for immunization Z23 ; Bronchitis J40 ; Anxiety F41.9 and Encounter for administration of vaccine Z23 [facility] [address] [place] [address], [place] [address] 06/20/2024 Daisha Lively Chronic pain syndrom e G89.4 ; Right shoulder pain M25.511 ; Postlaminectomy syndrome, not elsewhere classified M96.1 ; Other spondylosis with radiculopathy, cervical region M47.22 ; Other spondylosis with radiculopathy, lumbosacral region M47.27 and USP (current) use of opiate analgesic Z79.891 [facility] [address] [address] 08/15/2024 Gonzales Smith Chronic pain syndrom e G89.4 ; Other spondylosis with radiculopathy, lumbosacral region M47.27 ; Right shoulder pain M25.511 ; Postlaminectomy syndrome, not elsewhere classified M96.1 ; Other spondylosis with radiculopathy, cervical region M47.22 and USP (current) use of opiate analgesic Z79.891 [facility] [address] [address] 08/21/2024 Carmelo Alfie Cervical spinal stenosis M48.02 ; Chronic pain syndrome G89.4 ; Cervical radiculopathy M54.12 ; Cervical cord myelomalacia G95.89 ; Lumbar radiculopathy M54.16 ; Lumbar foraminal stenosis M48.061 and Degeneration of intervertebral disc of lumbar region with discogenic back pain and lower extremity pain M51.362 [facility] [address] [place] [address] 09/11/2024 Gonzales Smith Lumbar radiculopathy M54.16 [facility] [address] [address] 10/03/2024 Gonzales Smith Chronic pain syndrom e G89.4 ; Other spondylosis with radiculopathy, lumbosacral region M47.27 ; Right shoulder pain M25.511 ; Postlaminectomy syndrome, not elsewhere classified M96.1 ; Other spondylosis with radiculopathy, cervical region M47.22 and shearing machine tender (current) use of opiate analgesic Z79.891 [facility] [address] [facility] [place] [address] 11/01/2024 Gonzales Smith Chronic pain syndrom e G89.4 ; Other spondylosis with radiculopathy, cervical region M47.22 and Postlaminectomy syndrome, not elsewhere classified M96.1 [facility] [address] [facility] [place] [address] 11/05/2024 Daisha Lively Chronic pain syndrom e G89.4 ; Other spondylosis with radiculopathy, lumbosacral region M47.27 ; Other spondylosis with radiculopathy, cervical region M47.22 ; Postlaminectomy syndrome, not elsewhere classified M96.1 and USP (current) use of opiate analgesic Z79.891 [facility] [address] [place] [address] 12/17/2024 Daisha Lively Chronic pain syndrom e G89.4 ; Other spondylosis with radiculopathy, lumbosacral region M47.27 ; Other spondylosis with radiculopathy, cervical region M47.22 ; Postlaminectomy syndrome, not elsewhere classified M96.1 and USP (current) use of opiate analgesic Z79.891 [facility] Office [address] [place] [address] [facility] G89.4 ; Other spondylosis with radiculopathy, cervical region M47.22 ; Primary hypertension I10 ; Colon cancer screening Z12.11 ; Insomnia G47.00 ; Muscle spasm M62.838 and Depression screen Z13.31 [facility] [address] [place] [address] 12/27/2024 Gonzales Smith Chronic pain syndrom e G89.4 and Postlaminectomy syndrome, not elsewhere classified M96.1 [facility] [place] [address] [facility] [address] 01/10/2025 Brandy Godinez Chronic pain syndrom e G89.4 ; Other spondylosis with radiculopathy, lumbosacral region M47.27 ; Right shoulder pain M25.511 ; Postlaminectomy syndrome, not elsewhere classified M96.1 ; Other spondylosis with radiculopathy, cervical region M47.22 and shearing machine tender (current) use of opiate analgesic Z79.891 [facility] [address] [address] 01/14/2025 Bushra Gayle Rash R21 ; Chronic pain syndrome G89.4 and Other cervical disc degeneration, unspecified cervical region M50.30 [facility] [address] [facility] [place] [address] 02/11/2025 Gonzales Smtih Chronic pain syndrom e G89.4 ; Other spondylosis with radiculopathy, cervical region M47.22 ; Other spondylosis with radiculopathy, lumbosacral region M47.27 ; Postlaminectomy syndrome, not elsewhere classified M96.1 ; Right shoulder pain M25.511 ; Muscle spasm M62.838 and USP (current) use of opiate analgesic Z79.891 [facility] [address] [address] 03/25/2025 [facility] Primary hypertension I10 ; Anxiety F41.9 ; Insomnia G47.00 ; Cervical radiculopathy M54.12 ; Prostate cancer screening Z12.5 ; Thyroid disorder screen Z13.29 and Drug therapy continued Z79.899 [facility] [address] [facility] [place] [address] 04/15/2025 Daisha Lively Chronic pain syndrom e G89.4 ; Other spondylosis with radiculopathy, cervical region M47.22 ; Other spondylosis with radiculopathy, lumbosacral region M47.27 ; Postlaminectomy syndrome, not elsewhere classified M96.1 ; Right shoulder pain M25.511 and USP (current) use of opiate analgesic Z79.891 [facility] [address] [place] [address] 04/15/2025 Paula Sarah Screening for colon cancer Z12.11 ; History of adenomatous polyp of colon Z86.0101 ; Family history of colon cancer Z80.0 and Preprocedural examination Z01.818 [facility] [address] [address] 04/22/2025 [facility] Chronic pain syndrom e G89.4 ; Insomnia G47.00 ; Primary hypertension I10 ; Anemia D64.9 ; Encounter for immunization Z23 ; Tobacco abuse Z72.0 ; Cervical radiculopathy M54.12 and Encounter for administration of vaccine Z23 Migrated_Facility 0 0 05/12/2024 Provider Migration Migrated_Facility 0 0 05/13/2024 Provider Migration [facility] [address] [place] [address] 04/15/2025 Fredrick Junior [facility] [address] [place] [place] [address] 06/20/2024 Gonzales Smith [facility] [address] [place] [place] [address] 06/20/2024 Lisa Laureen Chronic pain syndrom e G89.4 [facility] [address] [facility] [place] [address] 07/16/2024 Daisha Padron [facility] [address] [place] [address] 09/18/2024 [facility] [address] [place] [address] 09/26/2024 Fredrick Junior [facility] [address] [place] [place] [address] 11/05/2024 Gonzales Smith Other spondylosis with radiculopathy, lumbosacral region M47.27 [facility] [address] [place] [place] [address] 12/17/2024 Gonzales Smith Other spondylosis with radiculopathy, lumbosacral region M47.27 [facility] [address] [place] [place] [address] 12/19/2024 Gonzales Smith Postlaminectomy syndrome, not elsewhere classified M96.1 [facility] [address] [facility] [address] [place] [address] 12/19/2024 [facility]ly [facility], [facility] [place] [address] [facility] [place] [address] 01/02/2025 Daisha Padron [facility]ly [facility] [address] [facility] [place] [address] 01/10/2025 Brandy Godinez Formerly [facility] [place] [address] [facility] [place] [address] 01/10/2025 Gonzales Smith Other spondylosis with radiculopathy, lumbosacral region M47.27 [facility]ly [facility] [place] [address] [facility] [place] [address] 01/14/2025 Gonzales Smith [place] [address] [place] [address] 01/15/[address] [place] [address] 04/08/2025 [facility] Other spondylosis with radiculopathy, cervical region M47.22 [facility]ly [facility] [address] [facility] [place] [address] 04/15/2025 Gonzales Smith Other spondylosis with radiculopathy, lumbosacral region M47.27 Assessments Encounter Date Diagnosis (ICD Code) Assessment Notes Treatment Notes Treatment Clinical Notes Section Notes 12/19/2024 Postlaminectomy syndrome, not elsewhere classified (ICD-10 - M96.1) 12/27/2024 Chronic pain syndrome (ICD-10 - G89.4) 12/27/2024 Postlaminectomy syndrome, not elsewhere classified (ICD-10 - M96.1) 08/21/2024 Cervical spinal stenosis (ICD-10 - M48.02) 09/11/2024 Lumbar radiculopathy (ICD-10 - M54.16) 10/03/2024 Chronic pain syndrome (ICD-10 - G89.4) I had a nice visit with the patient today regarding his chronic pain issues. He has had a little bit of improvement of his lumbar pain after the epidural steroid injection but the cervical problems persist. Dr. Judge had recommended consideration of spinal cord stimulation and he was interested in this. We discussed it at length and we had already ordered the psychological evaluation to speed up the process and he has had that completed. Taking all of this into account, with his failure of more conservative treatment options, it would seem reasonable to move forward with the spinal cord stimulator trial for his cervical spine as a late resort option. We will get this scheduled in the near future and proceed accordingly. Schedule cervical SCS trial 03/25/2025 Anxiety (ICD-10 - F41.9) buspar 10/03/2024 Other spondylosis with radiculopathy, lumbosacral region (ICD-10 - M47.27) 03/25/2025 Primary hypertension (ICD-10 - I10) continue meds cbc cmp lipids 05/07/2024 Neuropathic pain (ICD-10 - M79.2) gabapentin pain clinic 05/07/2024 Primary hypertension (ICD-10 - I10) olmesartan metoprolol amlodipine 08/21/2024 Chronic pain syndrome (ICD-10 - G89.4) 04/15/2025 Other spondylosis with radiculopathy, lumbosacral region (ICD-10 - M47.27) 04/22/2025 Chronic pain syndrome (ICD-10 - G89.4) pain clinic 04/22/2025 Insomnia (ICD-10 - G47.00) continue meds 04/15/2025 Screening for colon cancer (ICD-10 - Z12.11) 04/15/2025 History of adenomatous polyp of colon (ICD-10 - Z86.0101) No red flag symptoms at this time. Patient denies changes in bowel habits, abdominal pain, melena, hematochezia, nausea, vomiting, reflux symptoms, dysphagia, hematemesis, unintentional weight loss, or fever.Colon cancer risks, prevention strategies, and screening guidelines discussed with the patient. Risk factors: Age, history of adenomatous polyps, tobacco dependence, family history of colon cancer. Prior endoscopy records reviewed and noted. Last colonoscopy was 10/22/2019 Recommend surveillance colonoscopy. Colonoscopy procedure, risks, benefits, potential complications, and potential interventions discussed. Bowel preparation was discussed and written instructions provided. Questions answered to apparent satisfaction. Verbalizes understanding. Desires to proceed with the proposed plan. Schedule colonoscopy with Dr. Junior Colonoscopy bowel prep sent to [facility] and instructions were reviewed with the patient. Advised to avoid any OTC supplements, NSAIDs, and aspirin 3 days prior to endoscopy. Follow-up to be arranged based on endoscopy findings and interventions 04/15/2025 Chronic pain syndrome (ICD-10 - G89.4) I had a nice discussion with the patient today in regard to his ongoing chronic pain and current treatment plan. Patient notes that he is managing reasonably well at this time with help of his medication regimen and spinal cord stimulator. Patient denies any health changes since his last office visit. For now, we will continue his current medication regimen unchanged. Patient will return to clinic in 2 months to continue assessment and evaluation. The patient continues with chronic pain requiring treatment to help restore function and improve quality of life. Risks of opioid therapy as well as interaction of opioids with alcohol, illicit drugs, muscle relaxers, and other sedative medications are reviewed briefly with patient again today. The patient has trialed all other reasonable treatment options and uses the medication to alleviate pain in order to remain active and rest with less pain. No clinically relevant medication side effects are noted. Last UDS and [place] TABLE AND DESK FINISHER reviewed today. Patient is advised that best long-term goals include increased activity, core strengthening, proper weight management, coping strategies, avoidance of painful triggers, and targeted interventional therapy. We will see the patient for routine follow up in accordance with all clinic policies. We did remind patient today of current guidelines to decrease opioid when possible. We will continue to stress nonopioid treatment. URINE TESTING TODAY; POINT OF SERVICE Urine drug screening will be performed today to monitor compliance with opioid therapy or to serve as a baseline screen for a patient who may be a candidate for opioid therapy in the future, pending UDS results. We will monitor with in-office testing (rapid testing) today and review the results prior to dispensing prescription, as well. Patient has been made aware of this policy. Continue oxyCODONE-Aceta minophen Tablet, 10-325 MG, Orally, 120 Tablet, 1 tablet, every 6 hrs, As needed Do not exceed 4 per day, 30 days, Refills=0 Continue oxyCODONE-Aceta minophen Tablet, 10-325 MG, Orally, 120 Tablet, 1 tablet, every 6 hrs, As needed Do not exceed 4 per day, 30 days, Refills=0 04/15/2025 Other spondylosis with radiculopathy, cervical region (ICD-10 - M47.22) 04/08/2025 Other spondylosis with radiculopathy, cervical region (ICD-10 - M47.22) 02/11/2025 Chronic pain syndrome (ICD-10 - G89.4) I had a nice visit today with the patient regarding his chronic pain issues and his postoperative course. We did the reprogramming of his stimulator. He is pleased with the relief he is getting. Despite the relief, he is very limited throughout most of his daily living. I tried to impress upon him, as he is early in the process. I am optimistic that he will continue to improve. For now, continue medications and plan to see him back in a couple of months. The patient continues with chronic pain requiring treatment to help restore function and improve quality of life. Risks of opioid therapy as well as interaction of opioids with alcohol, illicit drugs, muscle relaxers, and other sedative medications are reviewed briefly with patient again today. The patient has trialed all other reasonable treatment options and uses the medication to alleviate pain in order to remain active and rest with less pain. No clinically relevant medication side effects are noted. Last UDS and [place] TABLE AND DESK FINISHER reviewed today. Patient is advised that best long-term goals include increased activity, core strengthening, proper weight management, coping strategies, avoidance of painful triggers, and targeted interventional therapy. We will see the patient for routine follow up in accordance with all clinic policies. We did remind patient today of current guidelines to decrease opioid when possible. We will continue to stress nonopioid treatment. 02/11/2025 Other spondylosis with radiculopathy, cervical region (ICD-10 - M47.22) 01/14/2025 Rash (ICD-10 - R21) depomedrol/decadr on im 01/10/2025 Other spondylosis with radiculopathy, lumbosacral region (ICD-10 - M47.27) 01/10/2025 Chronic pain syndrome (ICD-10 - G89.4) I had a nice discussion with the patient today regarding his chronic pain complaints. He is here today for a postop appointment after his spinal cord stimulator implant. He is doing very well with this so far. There was an extensive reprogramming done last week for him. He states he feels it may need to be tweaked a little more so he is going to contact the loss control representative again. I did remove the bandages and the incision sites look to be healed well. There are no signs of infection such as redness, swelling, bruising, bleeding, drainage, warmth. I did discuss continued restrictions with him. He will continue his medication at present level and return to clinic in 1 month to monitor for treatment effectiveness and compliance. 01/14/2025 Chronic pain syndrome (ICD-10 - G89.4) dr gamez as planned 12/24/2024 Chronic pain syndrome (ICD-10 - G89.4) dr gamez continue plan 12/24/2024 Other spondylosis with radiculopathy, cervical region (ICD-10 - M47.22) gabapentin 12/17/2024 Other spondylosis with radiculopathy, lumbosacral region (ICD-10 - M47.27) 12/17/2024 Chronic pain syndrome (ICD-10 - G89.4) I had a nice discussion with the patient today in regard to his ongoing chronic pain and current treatment plan. Patient was very pleased with his most recent spinal cord stimulator trial for his cervical spine. He wishes to proceed with the permanent placement as it did reduce his pain by at least 80 to 90%. Patient reports that he is looking forward to this permanent placement that is coming up and is hopeful that he will receive just as much relief as he did during the trial. Postoperative instructions were discussed today. We will continue his current oxycodone and tizanidine prescriptions. Patient was also provided a soft cervical brace as he reports he left his last one here when he came in for the trial. He will return to clinic for a postoperative appointment. The patient continues with chronic pain requiring treatment to help restore function and improve quality of life. Risks of opioid therapy as well as interaction of opioids with alcohol, illicit drugs, muscle relaxers, and other sedative medications are reviewed briefly with patient again today. The patient has trialed all other reasonable treatment options and uses the medication to alleviate pain in order to remain active and rest with less pain. No clinically relevant medication side effects are noted. Last UDS and [place] TABLE AND DESK FINISHER reviewed today. Patient is advised that best long-term goals include increased activity, core strengthening, proper weight management, coping strategies, avoidance of painful triggers, and targeted interventional therapy. We will see the patient for routine follow up in accordance with all clinic policies. We did remind patient today of current guidelines to decrease opioid when possible. We will continue to stress nonopioid treatment. URINE TESTING TODAY; POINT OF SERVICE Urine drug screening will be performed today to monitor compliance with opioid therapy or to serve as a baseline screen for a patient who may be a candidate for opioid therapy in the future, pending UDS results. We will monitor with in-office testing (rapid testing) today and review the results prior to dispensing prescription, as well. Patient has been made aware of this policy. Refill oxyCODONE-Aceta minophen Tablet, 10-325 MG, Orally, 120 Tablet, 1 tablet, every 6 hrs, 30 days, Refills=0 Refill tiZANidine HCl Tablet, 4 MG, Orally, 30, 1 tablet, At bedtime, 30 days, Refills=0 11/05/2024 Other spondylosis with radiculopathy, lumbosacral region (ICD-10 - M47.27) 11/05/2024 Chronic pain syndrome (ICD-10 - G89.4) I had a nice discussion with the patient today in regard to his ongoing chronic pain and current treatment plan. Patient was very pleased with his most recent spinal cord stimulator trial for his cervical spine. He wishes to proceed with the permanent placement as it did reduce his pain by at least 80 to 90%. We will also continue his current oxycodone and tizanidine prescriptions at this time. Patient will return to clinic once he receives approval through his insurance to proceed with the permanent. He will return to clinic for a preoperative appointment. The patient continues with chronic pain requiring treatment to help restore function and improve quality of life. Risks of opioid therapy as well as interaction of opioids with alcohol, illicit drugs, muscle relaxers, and other sedative medications are reviewed briefly with patient again today. The patient has trialed all other reasonable treatment options and uses the medication to alleviate pain in order to remain active and rest with less pain. No clinically relevant medication side effects are noted. Last UDS and [place] TABLE AND DESK FINISHER reviewed today. Patient is advised that best long-term goals include increased activity, core strengthening, proper weight management, coping strategies, avoidance of painful triggers, and targeted interventional therapy. We will see the patient for routine follow up in accordance with all clinic policies. We did remind patient today of current guidelines to decrease opioid when possible. We will continue to stress nonopioid treatment. RECOMMEND URINE TESTING TODAY Urine drug screening will be performed today to monitor compliance with opioid therapy or to serve as a baseline screen for a patient who may be a candidate for opioid therapy in the future, pending UDS results. We will monitor with in-office testing (rapid testing) today and review the results prior to dispensing prescription. All positive results will be sent for quantitative analysis to ensure accuracy and quantify amounts. Any expected positive results that return negative will also be sent for quantitative analysis. Any questionable read or any medication we cannot test for in the office confidently will be sent for quantitative analysis, as well. Patient has been made aware of this policy and agrees to abide by our urine testing policy. Refill oxyCODONE-Aceta minophen Tablet, 10-325 MG, Orally, 120 Tablet, 1 tablet as needed, every 6 hrs, 30 days, Refills=0 Refill tiZANidine HCl Tablet, 4 MG, Orally, 60, 2 tablet, At bedtime, 30 days, Refills=0 11/05/2024 Other spondylosis with radiculopathy, lumbosacral region (ICD-10 - M47.27) 11/01/2024 Chronic pain syndrome (ICD-10 - G89.4) 11/01/2024 Other spondylosis with radiculopathy, cervical region (ICD-10 - M47.22) 08/15/2024 Chronic pain syndrome (ICD-10 - G89.4) I had a nice visit with the patient today regarding his chronic pain issues. He had recent cervical imaging which does show some edema within the cord as well as some persistent severe persistent stenosis. He has a follow up with Dr. Judge in 5 months but I recommended that he scoot that up a little bit and he's going to discuss the results and treatment options with him. He has the recurrent lumbar issues as well and is interested in moving forward with a lumbar epidural steroid injection, mainly focused on the left side in what appears to be an L5-S1 distribution. We will get this scheduled in the near future and continue his medications unchanged for now. Schedule L5-S1 LESI, left directed 06/20/2024 Chronic pain syndrome (ICD-10 - G89.4) 06/20/2024 Chronic pain syndrome (ICD-10 - G89.4) I had a nice discussion with patient today in regard to his chronic pain complaints. Patient reports that he is doing reasonably well with up of his medication regimen. Patient was previously ordered for a left SI joint injection, but he did not schedule this. He states that he would like to hold off on this for now. Patient also strongly defers wanting any imaging on his cervical spine today even though he is experienced increased pain and numbness in his neck into his right upper extremity. Compliance was assessed and found to be consistent with care today. Patient is requesting an increase on his tizanidine prescription as he states that he is having increased muscle spasms and difficulty sleeping. We will increase this to tizanidine 8 mg nightly. Patient will return to clinic in 2 months to continue assessment and evaluation. 08/15/2024 Other spondylosis with radiculopathy, lumbosacral region (ICD-10 - M47.27) 06/20/2024 Right shoulder pain (ICD-10 - M25.511) 08/15/2024 Right shoulder pain (ICD-10 - M25.511) 06/20/2024 Postlaminectomy syndrome, not elsewhere classified (ICD-10 - M96.1) 11/01/2024 Postlaminectomy syndrome, not elsewhere classified (ICD-10 - M96.1) 11/05/2024 Other spondylosis with radiculopathy, cervical region (ICD-10 - M47.22) 12/17/2024 Other spondylosis with radiculopathy, lumbosacral region (ICD-10 - M47.27) 12/24/2024 Primary hypertension (ICD-10 - I10) continue meds 01/14/2025 Other cervical disc degeneration, unspecified cervical region (ICD-10 - M50.30) 01/10/2025 Other spondylosis with radiculopathy, lumbosacral region (ICD-10 - M47.27) 04/22/2025 Primary hypertension (ICD-10 - I10) continue meds 02/11/2025 Other spondylosis with radiculopathy, lumbosacral region (ICD-10 - M47.27) 04/15/2025 Other spondylosis with radiculopathy, lumbosacral region (ICD-10 - M47.27) 04/15/2025 Family history of colon cancer (ICD-10 - Z80.0) 10/03/2024 Right shoulder pain (ICD-10 - M25.511) 08/21/2024 Cervical radiculopathy (ICD-10 - M54.12) 05/07/2024 Back pain with radiculopathy (ICD-10 - M54.10) ibuprofen 03/25/2025 Insomnia (ICD-10 - G47.00) hydroxyzine trazodone 10/03/2024 Postlaminectomy syndrome, not elsewhere classified (ICD-10 - M96.1) RECOMMEND SPINAL CORD STIMULATOR TRIAL A percutaneous spinal cord stimulator (SCS) trial is recommended for this patient who has failed all reasonable therapies, both operative and nonoperative, as noted in prior records. The patient has met all diagnostic criteria for consideration of this device, as above. We will schedule SCS trial after successful completion of a psychological evaluation by psychologist or psychiatrist. A thorough review of the indications and risks of spinal cord stimulator implantation has been discussed with the patient. If greater than 50-60% reduction in pain is achieved during the trial, a permanent implant will be considered. The trial period is five days as an outpatient. The procedure and risks were discussed with the patient including but not limited to infection, bleeding, neurological complications, side effects from medications, no change in pain, worsening of pain, or even . We also discussed conservative options, surgical options, and medical management with patient as well. The patient indicates understanding and wishes to proceed with the recommended treatment approach. The patient was given written information about the procedure and all questions were answered. 08/21/2024 Cervical cord myelomalacia (ICD-10 - G95.89) 03/25/2025 Cervical radiculopathy (ICD-10 - M54.12) pain clinic as planned 05/07/2024 Depression screen (ICD-10 - Z13.31) 04/15/2025 Preprocedural examination (ICD-10 - Z01.818) 04/22/2025 Anemia (ICD-10 - D64.9) 04/15/2025 Postlaminectomy syndrome, not elsewhere classified (ICD-10 - M96.1) 02/11/2025 Postlaminectomy syndrome, not elsewhere classified (ICD-10 - M96.1) 12/24/2024 Colon cancer screening (ICD-10 - Z12.11) abdi 01/10/2025 Right shoulder pain (ICD-10 - M25.511) 12/17/2024 Other spondylosis with radiculopathy, cervical region (ICD-10 - M47.22) 11/05/2024 Postlaminectomy syndrome, not elsewhere classified (ICD-10 - M96.1) 08/15/2024 Postlaminectomy syndrome, not elsewhere classified (ICD-10 - M96.1) 06/20/2024 Other spondylosis with radiculopathy, cervical region (ICD-10 - M47.22) 06/20/2024 Other spondylosis with radiculopathy, lumbosacral region (ICD-10 - M47.27) 11/05/2024 USP (current) use of opiate analgesic (ICD-10 - Z79.891) 08/15/2024 Other spondylosis with radiculopathy, cervical region (ICD-10 - M47.22) 12/17/2024 Postlaminectomy syndrome, not elsewhere classified (ICD-10 - M96.1) 01/10/2025 Postlaminectomy syndrome, not elsewhere classified (ICD-10 - M96.1) 12/24/2024 Insomnia (ICD-10 - G47.00) trazodone 04/15/2025 Right shoulder pain (ICD-10 - M25.511) 02/11/2025 Right shoulder pain (ICD-10 - M25.511) 04/22/2025 Encounter for immunization (ICD-10 - Z23) Immunization supplied by [employer]. 08/21/2024 Lumbar radiculopathy (ICD-10 - M54.16) 05/07/2024 Encounter for immunization (ICD-10 - Z23) flu vaccine Immunization supplied by [employer]. 10/03/2024 Other spondylosis with radiculopathy, cervical region (ICD-10 - M47.22) 03/25/2025 Prostate cancer screening (ICD-10 - Z12.5) psa 03/25/2025 Thyroid disorder screen (ICD-10 - Z13.29) tsh 10/03/2024 USP (current) use of opiate analgesic (ICD-10 - Z79.891) 05/07/2024 Bronchitis (ICD-10 - J40) z elaina medrol dose pack 08/21/2024 Lumbar foraminal stenosis (ICD-10 - M48.061) 04/22/2025 Tobacco abuse (ICD-10 - Z72.0) 02/11/2025 Muscle spasm (ICD-10 - M62.838) 01/10/2025 Other spondylosis with radiculopathy, cervical region (ICD-10 - M47.22) 04/15/2025 USP (current) use of opiate analgesic (ICD-10 - Z79.891) 12/17/2024 USP (current) use of opiate analgesic (ICD-10 - Z79.891) 12/24/2024 Muscle spasm (ICD-10 - M62.838) tizanidine 08/15/2024 USP (current) use of opiate analgesic (ICD-10 - Z79.891) 06/20/2024 shearing machine tender (current) use of opiate analgesic (ICD-10 - Z79.891) 12/24/2024 Depression screen (ICD-10 - Z13.31) 01/10/2025 shearing machine tender (current) use of opiate analgesic (ICD-10 - Z79.891) 02/11/2025 USP (current) use of opiate analgesic (ICD-10 - Z79.891) RECOMMEND URINE TESTING TODAY Urine drug screening will be performed today to monitor compliance with opioid therapy or to serve as a baseline screen for a patient who may be a candidate for opioid therapy in the future, pending UDS results. We will monitor with in-office testing (rapid testing) today and review the results prior to dispensing prescription. All positive results will be sent for quantitative analysis to ensure accuracy and quantify amounts. Any expected positive results that return negative will also be sent for quantitative analysis. Any questionable read or any medication we cannot test for in the office confidently will be sent for quantitative analysis, as well. Patient has been made aware of this policy and agrees to abide by our urine testing policy. 04/22/2025 Cervical radiculopathy (ICD-10 - M54.12) gabapentin 05/07/2024 Anxiety (ICD-10 - F41.9) hydroxyzine lexapro 03/25/2025 Drug therapy continued (ICD-10 - Z79.899) ha1c 08/21/2024 Degeneration of intervertebral disc of lumbar region with discogenic back pain and lower extremity pain (ICD-10 - M51.362) 04/22/2025 Encounter for administration of vaccine (ICD-10 - Z23) 05/07/2024 Encounter for administration of vaccine (ICD-10 - Z23) 05/07/2024 Other Questions asked and answered; discharged to home. Give Flu vaccine as directed per provider Questions asked and answered; discharged to home. 08/15/2024 Other I, Gerardo Garcia, am scribing for Dr. Gonzales Smith. I, Dr. Gonzales Smith, personally performed the services described in this documentation, as scribed by Gerardo Garcia, and it is both accurate and complete. 08/21/2024 Other The patient continues with increased neck and low back pain. The cervical and lumbar imaging was reviewed and discussed with the patient. He feels the neck pain is worsening. The patient complains of right upper extremity pain. He says he feels his stamina has greatly decreased over the past year. I explained to the patient if he is able to get his pain under control, his stamina could improve. The patient feels he has exhausted symptomatic and conservative treatment for pain relief and medication management does not seem to be enough. He says the neck pain is worse than the back pain at this time. He was encouraged to continue working with the pain clinic for his back. He is scheduled for another LESI soon. I had a discussion with the patient. I believe the patient's best option for pain control in his neck and upper extremities is going to be a cervical spinal cord stimulator. I explained the process for the evaluation, trial and placement. Questions were asked and answered to the patient's satisfaction. He states his understanding and is in agreement to the pain clinic for an evaluation of a cervical spinal cord stimulator. If a stimulator proves not to be an option for him, he will call and return for another discussion. ROS reviewed I Ana Lr LPN am scribing for, and in the presence of Carmelo Judge MD. I, Carmelo Judge, personally performed the services described in this documentation, as scribed by Ana rL LPN in my presence, and it is both accurate and complete. 10/03/2024 Other Alex, Gerarod Garcia, am scribing for Dr. Gonzales Smith. I, Dr. Gonzales Smith, personally performed the services described in this documentation, as scribed by Gerardo Garcia, and it is both accurate and complete. 12/24/2024 Other Questions asked and answered; discharged to home. 01/14/2025 Other Questions asked and answered; discharged to home. 02/11/2025 Other Alex, Gena Espinoza, anastasia scribing for Dr. Gonzales Smith. I, Dr. Gonzales Smith, personally performed the services described in this documentation, as scribed by Gena Espinoza, and it is both accurate and complete. 03/25/2025 Other Questions asked and answered; discharged to home. Venipuncture: Performed by: Juana CARDOZA Attempts: x1 Location: RAC Needle gauge: 22g Patient tolerated well. 04/22/2025 Other Questions asked and answered; discharged to home. Give Flu vaccine as directed per provider Plan Of Treatment Pending Test Test Name Order Date Prothrombin Time 86613 05/08/2020 Prothrombin Time 90870 12/17/2024 ABORh 28102, 23824 05/08/2020 Antibody Screen 22151 05/08/2020 Basic Metabolic Panel (BMP) 63640 2019 Basic Metabolic Panel (BMP) 45592 2019 Basic Metabolic Panel (BMP) 43042 2024 Basic Metabolic Panel (BMP) 83625 2022 CBC w\ Auto Diff 19534 12/17/2024 CBC w\ Auto Diff 03378 05/08/2020 Partial Thromboplastin Time 50694 2019 Partial Thromboplastin Time 45446 2024 Sedimentation Rate 27370 12/17/2024 CBC Reflex Man Diff 52031, 64151 020 CBC Reflex Man Diff 98456, 20330 023 CRP 13896 12/17/2024 Cervical Spine AP/Lat 2-3 Views-54759 Cervical Spine AP/Lat 2-3 Views-29529 Cervical Spine AP/Lat 2-3 Views-10795 Cervical Spine AP/Lat 2-3 Views-51087 Chest PA/Lat-65004 05/12/2020 Chest PA/Lat-03023 02/07/2023 Chest PA/Lat-90148 05/08/2020 Chest PA/Lat-26273 12/17/2024 Chest PA/Lat-37448 12/17/2024 CT C-Spine w/o Contrast incl Recon-65460 11/08/2022 MRI Cervical Spine w/o Cont-94277 2019 MRI Cervical Spine w/o Cont-33817 2019 MRI Lumbar Spine w/o Cont-43573 04/21/20 MRI Lumbar Spine w/o Cont-38049 04/08/20 MRI Lumbar Spine w/o Cont-47118 11/22/19 MRI Lumbar Spine w/o Cont-89079 12/19/19 XR Outside CD 03/10/2020 XR Outside CD 03/10/2020 XR Outside CD 03/10/2020 XR Outside CD 03/10/2020 XR Outside CD 03/10/2020 XR Outside CD 03/10/2020 XR Outside CD 06/26/2020 Electrocardiogram 12 Lead Tracing-61545 02/07/2023 WBC Auto Diff--88917 05/14/2020 BB ABORH-61506,36488 05/12/2020 zzzFluoro >1h4 05/14/2020 zzzFluoro >1h4 12/27/2024 COVID 19 PCR--24528 05/08/2020 Colonoscopy, High Risk Screening-G0105 0 04/15/2025 Schedule Confirmation 11/08/2022 Schedule Confirmation 11/08/2022 Schedule Confirmation 12/19/2023 Schedule Confirmation 12/19/2023 Urine Drug Screen (cup read) - 43365 Next Appt Details Provider Name:Daisha young, 06/03/2025 10:20:00 AM, [address], [place], [place], [address], Provider Name:Fredrick Junior , 06/10/2025 09:00:00 AM, [address], [place], [place], [address], Insurance Providers Payer Name Payer Address Payer Phone Subscriber Number Group Number Insured Name Patient Relationship to Insured Coverage Start Date Coverage End Date [employer] [address] [address] [place] [address] [id number] Coleman Isrrael Self - patient is the insured Medications Administered Medication Instructions Date of Administration Dosage Notes DEPO-Medrol 01/14/2025 40 mg [facility] [phone] 3-01 pt tolerated well/instructed to wait 20 min dexAMETHasone 01/14/2025 4 mg [facility] [phone] pt tolerated well/instructed to wait 20 min Medical (General) History Medical History History ICD Code hypertension arthritis back pain hemorrhoids colon polyps migraine headaches hives bronchitis anxiety cataracts GERD hyperlipidemia irritable bowel syndrome mumps, chicken pox Pneumonia Surgical History Surgery Date(Month/Year) tonsillectomy and adenoidectomy 1981 appendectomy 1976 ear surgery x3, left BMTT and mastoidect jeramy CEIOLI left eye C3-5 ACDF 04/2020 LT CTR & Ulnar Nerve Decompression Appendectomy Ear surgery Neck surgery wrist surg elbow spinal surg stimulator put in Hospitalization History Reason Date(Month/Year) for surgical procedures
--- OUTSIDE RECORDS SUMMARY | 2025-05-05 21:35 | XMS_ITS | Clinical Summary ---
Author Organization [facility] Rashaad vasquez Anil Address [address] [place] [address] Phone Care Team Providers Care Pill Coater Name Role Phone Unavailable Primary Care Provider Unavailabl e Social History Tobacco Use Types Packs/Day Years Used Date Smoking Tobacco: Never Assessed Sex and Gender Information Value Date Recorded Sex Assigned at Not on file Legal Sex Male 7:17 AM [employer] Gender Identity Not on file Sexual Orientation Not on file Plan of Treatment Health Maintenance Due Date Last Done Comments DTAP/TDAP/TD VACCINES (1 - Tdap) 1985 HEPATITIS B VACCINES (1 of 3 - 19+ 3-dose series) 09/1985 COLORECTAL SCREENING 10/19/2011 Colorectal Cancer Screening 10/19/2011 FIT-DNA Q 3 years 10/19/2011 FIT/FOBT Q 1 year 10/19/2011 Flex Sig/CT Colonography Q 5 years 10/19/2011 ZOSTER VACCINE (1 of 2) 2016 INFLUENZA VACCINE (#1) 2025
[2025-05-05 21:49] VITALS: PULSE 78; RESP 18; TEMP 36.5; O2SAT 96
[2025-05-05 22:17] VITALS: BP 115/72; PULSE 76; O2SAT 97
[2025-05-05] MEDS: lidocaine-epi 2% 20 mL INJ INJECTION (22:22)
[2025-05-05] MEDS: tetanus-dipt-pertussis 0.5 mL SDV IM (22:27)
[2025-05-05 22:53] VITALS: BP 115/72; PULSE 76; O2SAT 97
--- NOTE | 2025-05-06 00:35 | ED_ITS ---
HPI - Wound/Laceration General: Chief Complaint: Wound/Laceration Stated Complaint: Left Hand Cut Time Seen by Provider: 05/05/25 22:04 Source: patient Mode of arrival: ambulatory Limitations: no limitations History of Present Illness: Patient is a 59-year-old male who presents the emergency department for laceration to left thumb. States he was sharpening a knife when it slipped and lacerated the base of his left thumb, no bleeding on arrival. He is not on blood thinners. No neurovascular symptoms are reported he has strength retained in the left hand. Distal sensations are intact. Tetanus is not up-to-date. 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 No other symptoms reported this time. Onset (ago): minute(s) Extremity Location: Left: hand (Thumb) Place: home Patient tetanus UTD: No Context: accidental Associated symptoms: Denies chills, fever(s), nausea or vomiting Treatments prior to arrival: bandage Related Data Allergies Allergy/AdvReac Type Severity Reaction Status Date / Time No Known Allergies Allergy Verified 05/05/25 21:53 Review of Systems General: Reports: 10 or more systems reviewed and unremarkable except in HPI and below Const: Denies: fever(s) or chills Card: Denies: chest pain Resp: Denies: dyspnea GI: Denies: abdominal pain, nausea, vomiting or diarrhea Musc: Denies: extremity pain or joint pain Skin/Breast: Reports: new lesions (Left thumb laceration); Denies: rash, skin pain or skin tenderness Neuro: Denies: headache(s) Physical Exam Const: COMMON NORMALS: no acute distress, patient oriented x3, no limitations, healthy appearing, alert and well nourished HENMT: COMMON NORMALS: normocephalic and atraumatic HEAD & SCALP: nor mocephalic and atraumatic Neck/C-Spine: COMMON NORMALS: full ROM, no lymphadenopathy, supple and no meningeal signs Extremity: COMMON NORMALS: full ROM and capillary refill normal NARRATIVE EXTREMITY EXAM: Distal sensations intact, full range of motion of the thumb Neuro: COMMON NORMALS: patient oriented x3, moves all extremities, no focal motor deficits and no sensory deficits noted SENSORIUM/ORIENTATION: Yes alert MENINGEAL SIGNS: Yes no meningeal signs Skin: COMMON NORMALS: turgor normal NARRATIVE SKIN EXAM: 4 cm laceration to dorsal aspect of prox imal left thumb, no active bleeding. No foreign body or contamination. GENERAL SKIN EXAM: turgor normal Procedures Laceration Laceration 1: Site: hand Side (If applicable): left Size (cm): 4 Description: linear and clean Depth: simple, single layer Local Anesthetic: lidocaine 2% and with epi Amount of anesthesia used (mL): 3 Pre-repair: wound explored Skin layer closed with: nylon Size (cm): 4-0 Number of sutures: 7 Technique: simple, interrupted Course Vital Signs: Vital signs: Vital Signs Temperature 97.7 F 05/05/25 21:49 Pulse Rate 76 05/05/25 22:53 Respiratory Rate 18 05/05/25 21:49 Blood Pressure 115/72 05/05/25 22:53 Pulse Oximetry 97 05/05/25 22:53 Oxygen Delivery Me thod Room Air 05/05/25 22:17 MDM - Wound/Laceration Medical Decision Making Patient presented after lacerating his left thumb, neurovascular exam was unremarkable, tetanus was updated today. Laceration was repaired, see the procedure note. This was superficial, no need for imaging, it was cleaned thoroughly in the emergency department 500 cc normal saline due to clean nature of it not warranting antibiotics at this time. He is given return precautions in regards to infectious findings and informed of how to care for at home. Sutures out in 7 days. No radiology studies performed this visit Discharge Plan Discharge Patient Disposition: Home Clinical Impression: Laceration Condition: Stable Discharge Orders: Discharge ED (Routine); Ordered 05/05/25 Ordered By: David Romano Referrals: [place],MARY ANN TomlinsonN [Primary Care Provider, Nurse Practitioner] Patient Instructions: Patient Portal & Jacqui Instructions Activity Restrictions/Additional Instructions: Laceration Discharge Instructions Wound Care: - Keep the wound covered with a clean, occlusive or semi-occlusive dressing (such as a bandage or gauze with ointment) to maintain a moist environment, which helps healing and reduces infection risk. - You may gently wash the area with tap water and mild soap starting 12-24 hours after repair; getting the wound wet does not increase infection risk. - After washing, pat dry and reapply a clean dressing. - Apply plain petroleum jelly (like Vaseline) or a topical antibiotic ointment if recommended, but either is acceptable for wound healing. - Avoid soaking the hand (e.g., in a bath) until sutures are removed. Suture Removal: - Sutures at the base of the thumb should be removed in 10-14 days to ensure proper healing and minimize risk of wound dehiscence. - Please schedule a follow-up appointment for suture removal within this timeframe. Activity: - Limit strenuous use of the hand until sutures are removed. - Avoid activities that may stress or reopen the wound. Signs to Watch For (Return Precautions): - Increased redness, swelling, warmth, or pain around the wound - Pus or foul-smelling drainage - Fever or chills - Numbness, loss of movement, or worsening pain in the thumb - If any of these occur, or if the wound reopens, seek medical attention promptly. Other Information: - Your tetanus vaccination is up to date; no further action is needed at this time. - Prophylactic antibiotics are not needed for simple lacerations unless signs of infection develop. If you have any questions or concerns, please contact your healthcare provider. Print Language: Jordanian Coding Level of Care Code ED It Administrative Assistant for Kelby Mario
== END 2025-05-05 23:01 | disposition home or self-care (01) ==
PROVIDERS: Emergency Provider Physician Assistant; PCP Nurse Practitioner Family
DX: S61.412A Laceration without foreign body of left hand, initial encounter (principal); W26.0XXA Contact with knife, initial encounter
CPT/HCPCS: 12002; 90471; 90715; 99283; J9999